=== PATIENT | male | born 1965 ===

== ENCOUNTER 2017-09-28 11:31 | Emergency (ER) | payer OTHER ==
[2017-09-28 11:36] VITALS: BP 130/76; PULSE 88; RESP 18; TEMP 98.7; O2SAT 96
--- NOTE | 2017-09-28 12:08 | C.PDOC ---
History Of Present Illness 52 year old male presents to the emergency room complaining of fever for 3 days with associated body aches, headache, sore throat, and cough. States he took Tylenol with no relief. Patient did not receive a flu shot this season. Otherwise no chest pain, shortness of breath, vomiting or diarrhea. PMD: None Time Seen by Provider: 09/28/17 12:00 Chief Complaint (Nursing): Flu-like Symptoms History Per: Patient History/Exam Limitations: no limitations Onset/Duration Of Symptoms: Days (x3) Current Symptoms Are (Timing): Still Present Past Medical History Reviewed: Historical Data, Nursing Documentation, Vital Signs Vital Signs: Last Vital Signs Temp 98.7 F 09/28/17 11:35 Pulse 88 09/28/17 11:35 Resp 18 09/28/17 11:35 BP 130/76 09/28/17 11:35 Pulse Ox 96 09/28/17 12:10 - Medical History PMH: No Chronic Diseases Other Surgeries: Left ankle surgery Family History: States: No Known Family Hx - Social History Hx Alcohol Use: No Hx Substance Use: No - Immunization History Hx Tetanus Toxoid Vaccination: No Hx Influenza Vaccination: No Hx Pneumococcal Vaccination: No Review Of Systems Except As Marked, All Systems Reviewed And Found Negative. Constitutional: Positive for: Fever, Other (Body aches) ENT: Positive for: Throat Pain Cardiovascular: Negative for: Chest Pain Respiratory: Positive for: Cough. Negative for: Shortness of Breath Gastrointestinal: Negative for: Vomiting, Diarrhea Neurological: Positive for: Headache Physical Exam - Physical Exam Appears: Non-toxic, No Acute Distress Skin: Normal Color, Warm, Dry Head: Atraumatic, Normacephalic Eye(s): bilateral: Normal Inspection, PERRL, EOMI Ear(s): Bilateral: Normal Nose: Discharge Throat: Erythema (mild), No Exudate Chest: Symmetrical Cardiovascular: Rhythm Regular, No Murmur Respiratory: Normal Breath Sounds, No Accessory Muscle Use, No Wheezing Neurological/Psych: Oriented x3, Normal Speech ED Course And Treatment O2 Sat by Pulse Oximetry: 96 (RA) Pulse Ox Interpretation: Normal Medical Decision Making Medical Decision Making: Impression: Influenza Will discharge patient with Tamiflu. Counseled regarding diagnosis and the need for follow up with the clinic. Disposition Counseled Patient/Family Regarding: Diagnosis, Need For Followup, Rx Given - Disposition Referrals: [facility] [Outside] Disposition: HOME/ ROUTINE Disposition Time: 12:08 Condition: STABLE Additional Instructions: Mr. Varela, thank you for letting us take care of you today. Return to the ER if your symptoms worsen. Take the medication listed below as prescribed. Call the [facility] at the phone number listed below to make a follow up appointment. Prescriptions: Oseltamivir Phosphate [Tamiflu] 1 tab PO BID #10 capsule Instructions: Influenza (ED) Forms: [employer] (Ukrainian) Print Language: [place] - POA Present On Arrival: None - Clinical Impression Clinical Impression: Influenza-like illness - Scribe Statement The provider has reviewed the documentation as recorded by the Scribe (Kailey Garber) Provider Attestation: All medical record entries made by the Scribe were at my direction and personally dictated by me. I have reviewed the chart and agree that the record accurately reflects my personal performance of the history, physical exam, medical decision making, and the department course for this patient. I have also personally directed, reviewed, and agree with the discharge instructions and disposition.
== END 2017-09-28 12:18 | disposition home or self-care (01) ==
LOC: C.ER 11:31
DX: J11.1 Influenza due to unidentified influenza virus with other respiratory manifestations (principal)

== ENCOUNTER 2018-03-26 16:28 | Emergency (ER) | payer OTHER ==
[2018-03-26 16:43] VITALS: BP 143/79; PULSE 69; RESP 18; TEMP 98.4; O2SAT 96
--- NOTE | 2018-03-26 16:52 | C.PDOC ---
History Of Present Illness 52yo male, comes to ER with complaints of left trapezius pain. 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 He also reports the pain radiates down his left arm. He denies any weakness, numbness and offers no additional medical complaints. Time Seen by Provider: 03/26/18 16:47 Chief Complaint (Nursing): Upper Extremity Problem/Injury History Per: Patient History/Exam Limitations: no limitations Onset/Duration Of Symptoms: Sudden Onset Current Symptoms Are (Timing): Still Present Quality: "Pain" Exacerbating Factor(s): Strenuous Use Of Affected Area Past Medical History Reviewed: Historical Data, Nursing Documentation, Vital Signs Vital Signs: Last Vital Signs Temp 98.4 F 03/26/18 16:41 Pulse 69 03/26/18 16:41 Resp 18 03/26/18 16:41 BP 143/79 03/26/18 16:41 Pulse Ox 96 03/26/18 16:52 - Medical History PMH: No Chronic Diseases Surgical History: No Surg Hx Family History: States: No Known Family Hx - Social History Hx Tobacco Use: No Hx Alcohol Use: No Hx Substance Use: No - Immunization History Hx Tetanus Toxoid Vaccination: No Hx Influenza Vaccination: No Hx Pneumococcal Vaccination: No Review Of Systems Musculoskeletal: Positive for: Shoulder Pain (left trapezius pain) Neurological: Negative for: Weakness, Numbness Physical Exam - Physical Exam Appears: Non-toxic, No Acute Distress Skin: Normal Color Head: Normacephalic Eye(s): bilateral: Normal Inspection Neck: Normal ROM, No Midline Cervical Tenderness, No Paracervical Tenderness, Supple Chest: Symmetrical Cardiovascular: Rhythm Regular Respiratory: Normal Breath Sounds Extremity: Normal ROM, Tenderness (tenderness and swelling to left trapezius), Capillary Refill (< 2 seconds), No Deformity, Other (Neurovascular sensations intact) Pulses: Left Radial: Normal, Right Radial: Normal Neurological/Psych: Oriented x3, Normal Motor, Normal Sensation ED Course And Treatment O2 Sat by Pulse Oximetry: 96 (RA) Pulse Ox Interpretation: Normal Medical Decision Making Medical Decision Making: L trapezius strain/sprain improved w ice/NSAIDS in ED no neurovascular compromise LOW susp of spinal injury Disposition Doctor Will See Patient In The: Office Counseled Patient/Family Regarding: Studies Performed, Diagnosis - Disposition Referrals: [facility] [Outside] [facility] [Outside] [facility] [Outside] [facility] [employer] [facility] [Outside] Disposition: HOME/ ROUTINE Disposition Time: 16:52 Condition: GOOD Additional Instructions: bolsa de hielo 1/2 hora por hora, nada caliente ibuprofeno 400-600 mg cada 6 horas mamie necessario Instructions: Muscle Strain (DC) Forms: [employer] (Stateless) Print Language: LITHUANIAN - Clinical Impression Clinical Impression: Trapezius strain - Scribe Statement The provider has reviewed the documentation as recorded by the Krista Magana Provider Attestation: All medical record entries made by the Analiibcarl were at my direction and personally dictated by me. I have reviewed the chart and agree that the record accurately reflects my personal performance of the history, physical exam, medical decision making, and the department course for this patient. I have also personally directed, reviewed, and agree with the discharge instructions and disposition.
== END 2018-03-26 16:58 | disposition home or self-care (01) ==
LOC: C.ER 16:28
DX: S46.912A Strain of unspecified muscle, fascia and tendon at shoulder and upper arm level, left arm, initial encounter (principal); X50.3XXA Overexertion from repetitive movements, initial encounter

== ENCOUNTER 2018-09-07 10:28 | Emergency (ER) | payer OTHER ==
[2018-09-07 10:38] VITALS: RESP 18; TEMP 97.9
--- NOTE | 2018-09-07 11:23 | C.PDOC ---
History Of Present Illness 68 year old male presents to the emergency department with complaints of a frontal headache since yesterday. Patient describes the headache as 5/10 in severity, he states that it is not the worst headache of his life and denies thunderclap onset. Patient reports taking Motrin 3 hours ago, with no relief. Patient states that he thinks the headache is due to working 12 hours each day and only sleeping 3-4 hours per night. Patient denies trauma, fever, chills, nausea, vomiting, neck pain, and visual changes. Time Seen by Provider: 09/07/18 11:07 Chief Complaint (Nursing): Headache History Per: Patient History/Exam Limitations: no limitations Onset/Duration Of Symptoms: Days (1) Current Symptoms Are (Timing): Still Present Pain Scale Rating Of: 5 Quality: Aching Preceeding Symptoms: denies: Visual Disturbances Associated Symptoms: denies: Photophobia, Blurred Vision, Nausea, Vomiting Past Medical History Reviewed: Historical Data, Nursing Documentation, Vital Signs Vital Signs: Last Vital Signs Temp 97.9 F 09/07/18 10:36 Pulse 69 09/07/18 10:36 Resp 18 09/07/18 10:36 BP 137/88 09/07/18 10:36 Pulse Ox 96 09/07/18 10:36 - Medical History PMH: No Chronic Diseases Surgical History: No Surg Hx Family History: States: No Known Family Hx - Social History Hx Tobacco Use: No Hx Alcohol Use: No Hx Substance Use: No - Immunization History Hx Tetanus Toxoid Vaccination: No Hx Influenza Vaccination: No Hx Pneumococcal Vaccination: No Review Of Systems Except As Marked, All Systems Reviewed And Found Negative. Constitutional: Negative for: Fever, Chills Eyes: Negative for: Vision Change Gastrointestinal: Negative for: Nausea, Vomiting Musculoskeletal: Negative for: Neck Pain Neurological: Positive for: Headache Physical Exam - Physical Exam Appears: Non-toxic, No Acute Distress Skin: Warm, Dry Head: Atraumatic, Normacephalic Eye(s): bilateral: Normal Inspection, PERRL, EOMI Neck: Normal, Supple Chest: Symmetrical, No Tenderness Neurological/Psych: Oriented x3, Normal Speech, Normal Cognition ED Course And Treatment O2 Sat by Pulse Oximetry: 96 (RA) Pulse Ox Interpretation: Normal Medical Decision Making Medical Decision Making: Patient given tylenol and instructed to follow-up with clinic. Disposition Counseled Patient/Family Regarding: Diagnosis, Need For Followup - Disposition Referrals: [facility] [Outside] [facility] [Outside] Disposition: HOME/ ROUTINE Disposition Time: 11:19 Condition: STABLE Additional Instructions: ALLEN MELCHOR, thank you for letting us take care of you today. Your provider was Adela Ibarra MD and you were treated for HEADACHE. The emergency medical care you received today was directed at your acute symptoms. If you were prescribed any medication, please fill it and take as directed. It may take several days for your symptoms to resolve. Return to the Emergency Department if your symptoms worsen, do not improve, or if you have any other problems. Please call one of the physicians/clinics you have been referred to that are listed on the Patient Visit Information form that is included in your discharge packet. Bring any paperwork you were given at discharge with you along with any medications you are taking to your follow up visit. Our treatment cannot replace ongoing medical care by a primary care provider outside of the emergency department. Thank you for allowing the [facility] team to be part of your care today. Instructions: Headache, Adult (DC) Forms: Gen Discharge Inst Wallisian, [employer] (Wallisian) Print Language: SWEDISH - POA Present On Arrival: None - Clinical Impression Clinical Impression: Headache - Scribe Statement The provider has reviewed the documentation as recorded by the Scribe (Nigel Pelaez) Provider Attestation: All medical record entries made by the Scribe were at my direction and personally dictated by me. I have reviewed the chart and agree that the record accurately reflects my personal performance of the history, physical exam, medical decision making, and the department course for this patient. I have also personally directed, reviewed, and agree with the discharge instructions and disposition.
[2018-09-07 11:38] VITALS: BP 120/70; PULSE 70
[2018-09-07 11:40] VITALS: O2SAT 96
== END 2018-09-07 11:38 | disposition home or self-care (01) ==
LOC: C.ER 10:28
DX: R51 Headache (principal)